=== PATIENT | female | born 1990 | race American Indian/Alaskan Native ===

== ENCOUNTER 2016-11-03 11:26 | Emergency (ER) | payer SELFPAY ==
[2016-11-03 11:53] VITALS: BP 104/72
--- NOTE | 2016-11-03 12:09 | Emergency Department Report ---
ED General Adult HPI - General Chief complaint: Anxiety Stated complaint: LIGHT HEADED/WEIGHT LOSS Time Seen by Provider: 11/03/16 11:58 Source: patient Mode of arrival: Ambulatory Limitations: No Limitations - History of Present Illness Initial comments: Pt reports multiple complaints. Reports intermittent episodes of lightheadedness , BOGDAN, decreased appetite, possible weight loss though has not checked. Reports symptoms ongoing. Also reports muscle cramps to legs at times. Currently no symptoms other than feeling tired. -: Gradual, month(s) Location: lower extremity Radiation: non-radiation Consistency: intermittent Improves with: none Worsens with: none Associated Symptoms: loss of appetite Treatments Prior to Arrival: none - Related Data Previous Rx's Medication Instructions Recorded Last Taken Type HYDROcodone/APAP 5-325 [[place] 1 each PO Q6HR PRN #14 tablet 01/22/16 Unknown Rx 5/325] Ibuprofen [Motrin] 800 mg PO Q8HR PRN #15 tablet 07/22/16 Unknown Rx LORazepam [Ativan] 1 mg PO BID PRN #10 tab 11/03/16 Unknown Rx Allergies Allergy/AdvReac Type Severity Reaction Status Date / Time No Known Allergies Allergy Unverified 01/22/16 10:10 ED Review of Systems ROS: Stated complaint: LIGHT HEADED/WEIGHT LOSS Other details as noted in HPI Comment: All other systems reviewed and negative Constitutional: see HPI. denies: chills, fever Eyes: denies: eye pain, eye discharge, vision change ENT: denies: ear pain, throat pain Respiratory: denies: cough, shortness of breath, wheezing Cardiovascular: denies: chest pain, palpitations Endocrine: no symptoms reported Gastrointestinal: denies: abdominal pain, nausea, diarrhea Genitourinary: denies: urgency, dysuria, discharge Musculoskeletal: denies: back pain, joint swelling, arthralgia Skin: denies: rash, lesions Neurological: denies: headache, weakness, paresthesias Psychiatric: denies: anxiety, depression Hematological/Lymphatic: denies: easy bleeding, easy bruising ED Past Medical Hx - Past Medical History Previous Medical History?: Yes Additional medical history: "stomach issue" - Surgical History Past Surgical History?: No - Social History Smoking Status: Current Every Day Smoker Substance Use Type: Alcohol, Marijuana - Medications Home Medications: Home Medications Medication Instructions Recorded Confirmed Last Taken Type HYDROcodone/APAP 5-325 [[place] 1 each PO Q6HR PRN #14 tablet 01/22/16 Unknown Rx 5/325] Ibuprofen [Motrin] 800 mg PO Q8HR PRN #15 tablet 07/22/16 Unknown Rx LORazepam [Ativan] 1 mg PO BID PRN #10 tab 11/03/16 Unknown Rx ED Physical Exam - General Limitations: No Limitations General appearance: alert, in no apparent distress - Head Head exam: Present: atraumatic, normocephalic - Eye Eye exam: Present: normal appearance - ENT ENT exam: Present: mucous membranes moist - Neck Neck exam: Present: normal inspection - Respiratory Respiratory exam: Present: normal lung sounds bilaterally. Absent: respiratory distress - Cardiovascular Cardiovascular Exam: Present: regular rate, normal rhythm. Absent: systolic murmur, diastolic murmur, rubs, gallop - GI/Abdominal GI/Abdominal exam: Present: soft, normal bowel sounds. Absent: distended, tenderness, guarding, rebound - Extremities Exam Extremities exam: Present: normal inspection, full ROM. Absent: calf tenderness - Back Exam Back exam: Present: normal inspection, full ROM. Absent: CVA tenderness (R), CVA tenderness (L) - Neurological Exam Neurological exam: Present: alert, oriented X3 - Psychiatric Psychiatric exam: Present: normal affect, normal mood. Absent: manic, homicidal ideation, suicidal ideation - Skin Skin exam: Present: warm, dry, intact, normal color. Absent: rash ED Course Vital Signs 11/03/16 11:48 Temperature 98.3 F Pulse Rate 65 Respiratory 20 Rate Blood Pressure 104/72 O2 Sat by Pulse 100 Oximetry - Reevaluation(s) Reevaluation #1: 11/03/16 12:08 Suspect symptoms related to anxiety. Will get a CBC/BMP to check for anemia or electrolyte abnormalities. Reevaluation #2: 11/03/16 12:54 NAD, stable for d/c. ED Medical Decision Making - Lab Data Result diagrams: 11/03/16 12:14 11/03/16 12:14 - Medical Decision Making Labs normal, no symptoms here. Suspect anxiety. Will give follow up. - Differential Diagnosis anxiety, anemia, electrolyte abnormality Critical care attestation.: If time is entered above; I have spent that time in minutes in the direct care of this critically ill patient, excluding procedure time. ED Disposition Clinical Impression: Anxiety Disposition: DISCHARGED TO HOME OR SELFCARE Is pt being admited?: No Condition: Good Instructions: Panic Disorder (ED), Anxiety (ED) Prescriptions: LORazepam [Ativan] 1 mg PO BID PRN #10 tab PRN Reason: Anxiety Referrals: PRIMARY CARE,MD [Primary Care Provider] - 3-5 Days MARTIN GRULLON MD [Staff Physician] - 3-5 Days Time of Disposition: 12:54
[2016-11-03 12:24] LABS: Hematocrit 41.4 % (30.3-42.9); Hemoglobin 13.5 gm/dl (10.1-14.3); Mean Corpuscular HGB Conc 33 % (30-34); Mean Corpuscular Hemoglobin 29 pg (28-32); Mean Corpuscular Volume 89 fl (79-97); Platelet Count 153 K/mm3 (140-440); Red Blood Count 4.66 M/mm3 (3.65-5.03); Red Cell Distribution Width 13.6 % (13.2-15.2); White Blood Count 4.2 K/mm3 (4.5-11.0)
[2016-11-03 12:51] LABS: Anion Gap 15 mmol/L; BUN/Creatinine Ratio 7.77; Blood Urea Nitrogen 7 mg/dL (7-17); Carbon Dioxide 26 mmol/L (22-30); Chloride 102.1 mmol/L (98-107); Glucose 93 mg/dL (65-100); Potassium 4.5 mmol/L (3.6-5.0); Sodium 139 mmol/L (137-145)
[2016-11-03 12:55] LABS: Blastocytes % (Manual) 0 %; Diff Status Complete; Platelet Estimate Appears Decreased; RBC Morphology Normal
== END 2016-11-03 13:04 | disposition home or self-care (01) ==
LOC: ED 11:26
DX: F41.9 Anxiety disorder, unspecified (principal); F17.200 Nicotine dependence, unspecified, uncomplicated; F12.10 Cannabis abuse, uncomplicated
CPT/HCPCS: 36415; 80048; 84703; 85007; 85025; 99283

== ENCOUNTER 2018-09-14 03:29 | Inpatient (IN) | payer MEDICAID, OTHER ==
[2018-09-14] MEDS ORDERED: BRETHINE SUB-Q PRN (04:21)
[2018-09-14] MEDS ORDERED: BRETHINE IVP PRN (04:21)
[2018-09-14] MEDS ORDERED: SUBLIMAZE IV PRN (04:21)
[2018-09-14] MEDS ORDERED: XYLOCAINE 2% INFILTRATI ONE (04:21)
[2018-09-14] MEDS ORDERED: LACTATED RINGERS 1,000 ML IV SCH ×2 (05:00→08:00)
[2018-09-14] MEDS ORDERED: PITOCin/NS 20 UNIT/1000ML DRIP 20 UNITS/1,000 ML BAG IV SCH ×2 (05:00→09:41)
[2018-09-14] MEDS ORDERED: PITOCin/NS 30 UNIT/500ML 30 UNITS/500 ML BAG IV SCH (05:00)
[2018-09-14 05:24] LABS: Hematocrit 34.3 % (30.3-42.9); Hemoglobin 11.8 gm/dl (10.1-14.3); Mean Corpuscular HGB Conc 34 % (30-34); Mean Corpuscular Volume 87 fl (79-97); Platelet Count 111 K/mm3 (140-440); Red Blood Count 3.93 M/mm3 (3.65-5.03); Red Cell Distribution Width 13.3 % (13.2-15.2)
[2018-09-14] MEDS ORDERED: NARCAN 2 MG/2 ML IV PRN (06:14)
--- NOTE | 2018-09-14 06:14 | Anesthesia Consultation ---
Anesthesia Consult and Med Hx Date of service: 09/14/18 - Airway Anesthetic Teeth Evaluation: Good ROM Head & Neck: Adequate Mental/Hyoid Distance: Adequate Mallampati Class: Class II Intubation Access Assessment: Probably Good - Pre-Operative Health Status ASA Pre-Surgery Classification: ASA2 Proposed Anesthetic Plan: Epidural, Spinal - Pulmonary Hx Asthma: No - Cardiovascular System Hx Hypertension: No - Central Nervous System Hx Seizures: No Hx Psychiatric Problems: No - Endocrine Hx Renal Disease: No Hx Hypothyroidism: No Hx Hyperthyroidism: No - Hematic Hx Anemia: No Hx Sickle Cell Disease: No - Other Systems Hx Alcohol Use: No
--- NOTE | 2018-09-14 06:53 | History and Physical Report ---
History of Present Illness Date of examination: 09/14/18 (pt presented in active labor ) Date of admission: 09/14/18 03:58 History of present illness: EDC Confirmation: 09/08/2018 Gestational Age: 19 2/7 weeks Past History : 1 Term Births: 0 Premature Births: 0 Living Children: 0 Para: 0 Mult. Births: 0 Prev : 0 Aborta: 0 Elect. Ab: 0 Spont. Ab: 0 Ectopics: 0 Past Medical History: Negative Past Medical History Past Surgical History: Negative Past Surgical History Family History Summary: Other family member - Has No Family History of Ovarvian Cancer - Entered On: 04/16/2018 Other family member - Has No Family History of Colon Cancer - Entered On: 04/16/2018 Other family member - Has No Family History of Breast Cancer - Entered On: 04/16/2018 Other family member - Has Family History of Hypertension - Entered On: 04/16/2018 Social History: Marital Status: Children: 0 Occupation: [employer] Patient is single Risk Factors: Smoked Tobacco Use: Current every day smoker Cigarettes: Yes -- 1/2 pack(s) per day, Year started: 2007 Counseled to quit/cut down: yes Drug use: no HIV high-risk behavior: low risk Alcohol use: no Dietary Counseling: pn yes Past Medical History Surgery (Non-criminalist): Negative Past Surgical History Abnormal PAP: negative Uterine Anomaly: negative Social Hx: Marital Status: Children: 0 Occupation: [employer] Patient is single Infection History Hx of STD: none HIV Risk Eval: low risk Hepatitis B Risk Eval: low risk Personal hx. of genital herpes: no Genetic History Congenital Heart Defect: Mom: no Dad: no Susana Disease: Mom: no Dad: no Thalassemia Mom: no Dad: no Neural Tube Defect Mom: no Dad: no Down's Syndrome Mom: no Dad: no Preston-Sachs Mom: no Dad: no Sickle Cell Disease/Trait Mom: no Dad: no Hemophilia Mom: no Dad: no Muscular Dystrophy Mom: no Dad: no Cystic Fibrosis Mom: no Dad: no [place] Chorea Mom: no Dad: no Mental Retardation Mom: no Dad: no Fragile X Mom: no Dad: no Other Genetic/Chromosomal Disorder Mom: no Dad: no Child w/other defect Mom: no Dad: no Enviromental Exposures Xray Exposure: no Medication, drug, or alcohol use since LMP: no Chemical/Other Exposure: no Exposure to Cat Liter: no Active Medications (reviewed today): None Current Allergies (reviewed today): No known allergies Past History - Obstetrical History Expected Date of Delivery: 09/08/18 Actual Gestation: 40 Week(s) 6 Day(s) : 1 Para: 0 Hx # Term Pregnancies: 0 Number of Pregnancies: 0 Spontaneous Abortions: 0 Induced : 0 Number of Living Children: 0 Medications and Allergies Allergies Allergy/AdvReac Type Severity Reaction Status Date / Time No Known Allergies Allergy Unverified 01/22/16 10:10 Home Medications Medication Instructions Recorded Confirmed Last Taken Type HYDROcodone/APAP 5-325 [[place] 1 each PO Q6HR PRN #14 tablet 01/22/16 Unknown Rx 5/325] Ibuprofen [Motrin] 800 mg PO Q8HR PRN #15 tablet 07/22/16 Unknown Rx LORazepam [Ativan] 1 mg PO BID PRN #10 tab 11/03/16 Unknown Rx Active Meds: Active Medications Ephedrine Sulfate (Ephedrine Sulfate) 10 mg IV Q2M PRN PRN Reason: Hypotension Fentanyl (Sublimaze) 100 mcg IV Q2H PRN PRN Reason: Labor Pain Last Admin: 09/14/18 05:01 Dose: 100 mcg Documented by: Lactated Ringer's (Lactated Ringers) 1,000 mls @ 125 mls/hr IV DIRECT YOLANDA Oxytocin/Sodium Chloride (Pitocin/Ns 20 Unit/1000ml Drip) 20 units in 1,000 mls @ 125 mls/hr IV DIRECT YOLANDA Oxytocin/Sodium Chloride (Pitocin/Ns 30 Unit/500ml) 30 units in 500 mls @ 1 mls/hr IV TITR YOLANDA; Protocol Fentanyl/Bupivacaine/Sodium Chlor (Fentanyl-Bupiv 2 Mcg/Ml-0.125%) 200 mcg in 100 mls @ 12 mls/hr EPIDURAL TITR YOLANDA; Protocol Mineral Oil (Mineral Oil) 30 ml PO QHS PRN PRN Reason: Constipation Naloxone HCl (Narcan 2 Mg/2 Ml) 0.2 mg IV Q5M PRN PRN Reason: Respiratory sedation Terbutaline Sulfate (Brethine) 0.25 mg SUB-Q ONCE PRN PRN Reason: Hyperstimulation/Hypertonicity Terbutaline Sulfate (Brethine) 0.25 mg IVP ONCE PRN PRN Reason: Hyperstimulation/Hypertonicity - Vital Signs Vital signs: Vital Signs Pulse BP Pulse Ox 33 L 114/75 57 L 09/14/18 03:46 09/14/18 03:46 09/14/18 03:46 Temp Pulse Resp BP Pulse Ox 75 115/58 100 09/14/18 06:14 09/14/18 06:14 09/14/18 03:57 - Physical Exam Breasts: Positive: deferred Cardiovascular: Regular rate, Normal S1, Normal S2 Lungs: Positive: Normal air movement Abdomen: Positive: normal appearance, soft, normal bowel sounds. Negative: distention, tenderness Genitourinary (Female): Positive: normal external genitalia Vulva: both: normal Vagina: Positive: normal moisture. Negative: discharge Cervix: Negative: lesion, discharge Uterus: Positive: normal size, normal contour Adnexa: both: normal Anus/Rectum: Positive: normal perianal skin, heme negative. Negative: rectal mass, hemorrhoids Extremities: Positive: normal Deep Tendon Reflex Grade: Normal +2 - Obstetrical FHR: category 1 Uterine Contraction Monitor Mode: External Cervical Dilatation: 6.5 (SROM) Cervical Effacement Percentage: 90 (exam by disposal operator) station: -1 Uterine Contraction Pattern: Regular Uterine Tone Measurement Phase: Resting Uterine Contraction Intensity: Moderate Results Result Diagrams: 09/14/18 04:44 Abnormal lab results 09/14/18 Range/Units 04:44 Plt Count 111 L (140-440) K/mm3 All other labs normal. GBS Positive HBsAg Screen Negative Negative *1 RPR Non Reactive Non Reactive *2 Rubella Antibodies, IgG 6.90 index Immune >0.99 *3 Non-immune <0.90 Equivocal 0.90 - 0.99 Immune >0.99 ABO Grouping A *4 Rh Factor Positive *5 Please note: Prior records for this patient's ABO / Rh type are not available for additional verification. Antibody Screen Negative Negative *6 WBC 5.8 x10E3/uL 3.4-10.8 *7 RBC 3.77 x10E6/uL 3.77-5.28 *8 Hemoglobin [L] 10.8 g/dL 11.1-15.9 *9 Hematocrit [L] 33.0 % 34.0-46.6 *10 MCV 88 fL 79-97 *11 MCH 28.6 pg 26.6-33.0 *12 MCHC 32.7 g/dL 31.5-35.7 *13 RDW 14.3 % 12.3-15.4 *14 Platelets 152 x10E3/uL 150-379 *15 Neutrophils 62 % Not Estab. *16 Lymphs 30 % Not Estab. *17 Monocytes 7 % Not Estab. *18 Eos 1 % Not Estab. *19 Basos 0 % Not Estab. *20 ! Immature Cells <No Reported Value> *21 Neutrophils (Absolute) 3.5 x10E3/uL 1.4-7.0 *22 Lymphs (Absolute) 1.7 x10E3/uL 0.7-3.1 *23 Monocytes(Absolute) 0.4 x10E3/uL 0.1-0.9 *24 Eos (Absolute) 0.1 x10E3/uL 0.0-0.4 *25 Baso (Absolute) 0.0 x10E3/uL 0.0-0.2 *26 ! Immature Granulocytes 0 % Not Estab. *27 ! Immature Grans (Abs) 0.0 x10E3/uL 0.0-0.1 *28 ! NRBC <No Reported Value> *29 Hematology Comments: <No Reported Value> *30 Tests: (2) Cystic Fibrosis Profile (090702) ! CF, Screen Comment: *31 RESULTS: Negative for 32 mutations analyzed Tests: (3) HB Solu + Rflx [facility] (626598) Hemoglobin (Hgb) Solubility Negative Negative *33 Tests: (4) Panel 216892 (831688) HIV Screen 4th Generation wRfx Non Reactive Non Reactive *34 Tests: (5) HCV Ab w/Rflx to Verification (111508) ! HCV Ab 0.1 s/co ratio 0.0-0.9 *35 Tests: (6) Comment: (319909) ! Comment: SPRCS *36 Non reactive HCV antibody screen is consistent with no HCV infection, unless recent infection is suspected or other evidence exists to indicate HCV infection. Tests: (7) Urine Culture, Routine ([id number]) Urine Culture, Routine Final report *37 Tests: (8) Result ([id number]) ! Result 1 MUG *38 Mixed urogenital yasmin 25,000-50,000 colony forming units per mL Assessment and Plan 27yo @ 40 weeks in active labor GBS + Orders in EMR
[2018-09-14] MEDS ORDERED: fentaNYL-BUPIV 2 MCG/ML-0.125% 200 MCG/100 ML BAG EPIDURAL SCH (07:00)
[2018-09-14] MEDS ORDERED: AMPICILLIN/NS 2 GM/100 ML 2 GM/100 ML BAG IV ONE (07:08)
--- NOTE | 2018-09-14 07:53 | Procedure Note ---
<EAN SALAS - Last Filed: 09/14/18 08:20> OB Delivery Note - Delivery Date of Delivery: 09/14/18 ( male ) Ironworker: ANUJ PEREZ (Assisted by Gibran Salas CNM) Estimated blood loss: 300cc - Vaginal Delivery presentation: vertex Delivery position: OA (shoulders transverse) Intrapartum events: mult.variable deceleratio Delivery induction: none Delivery monitor: external FHT, external uterine Route of delivery: Delivery placenta: spontaneous Delivery cord: true knot, 3 umbilical vessels Episiotomy: midline Delivery laceration: 4th degree Delivery repair: vicryl Anesthesia: epidural Delivery comments: deep variables noted in FHT while head . Male infant del over mi dline episiotomy, Infant placed skin to skin on mother's abdomen. terminal mec noted. 3 vessel cord clamped and cut. Tight true knot noted in cord. Placenta del intact and complete. partial 4th degree extension identified and repaired by Breanna Perez CNM in the usual fashion. Apgars 7/9, wt 7#2oz, EBL 300. Mother and infant remain LDR stable. - A at 1 minute: 7 at 5 minutes: 9 Gender: Male (7#2) <ANUJ PEREZ - Last Filed: 09/14/18 10:47> OB Delivery Note - Vaginal Delivery comments: Episiotomy repaired with 3-0 and 2-0 vicryl over epidural. Rectal mucosa intact. Pt tolerated repair. Wound care reviewed All questions addressed.
[2018-09-14] MEDS ORDERED: DERMOPLAST TP PRN (09:41)
[2018-09-14] MEDS ORDERED: BENADRYL PO PRN (09:41)
[2018-09-14] MEDS ORDERED: ZOFRAN IV PRN (09:41)
[2018-09-14] MEDS ORDERED: LANSINOH TP PRN (09:41)
[2018-09-14] MEDS ORDERED: TYLENOL PO PRN (09:41)
[2018-09-14] MEDS ORDERED: SODIUM CHLORIDE FLUSH SYRINGE 10 ML IV NR (09:41)
[2018-09-14] MEDS ORDERED: MILK OF MAGNESIA PO PRN (09:41)
[2018-09-14] MEDS ORDERED: DULCOLAX PR PRN (09:41)
[2018-09-14] MEDS ORDERED: PHENERGAN PO PRN (09:41)
[2018-09-14] MEDS: TUCKS PAD TP PRN (10:24)
[2018-09-14] MEDS: IBUPROFEN PO SCH ×2 (10:25→16:25)
[2018-09-14] MEDS: COLACE PO SCH ×2 (10:25→22:12)
[2018-09-14] MEDS: PERCOCET 5/325 PO PRN ×2 (13:42→18:42)
[2018-09-14] MEDS: PRENATAL VITAMIN PO SCH (14:19)
[2018-09-14 19:59] LABS: Hematocrit 31.5 % (30.3-42.9); Hemoglobin 10.7 gm/dl (10.1-14.3)
[2018-09-14] MEDS ORDERED: MINERAL OIL PO PRN (22:00)
[2018-09-15] MEDS: IBUPROFEN PO SCH ×5 (00:11→22:18)
[2018-09-15] MEDS: PERCOCET 5/325 PO PRN ×4 (00:14→22:19)
[2018-09-15] MEDS ORDERED: BOOSTRIX IM ONE (07:46)
--- NOTE | 2018-09-15 08:15 | Progress Note ---
Assessment and Plan - Patient Problems (1) Fourth degree perineal laceration during delivery, delivered Onset Date: ~09/14/18 Current Visit: Yes Status: Acute Plan to address problem: Pt c/o some laceration pain Wound care discussed Pt voiced understanding VSS FF below umb Lochia small perineum slight swelling intact H&H 07/11 drop r/t blood loss from delivery Asymptomatic anemia Doing well s/p vag del with 4th degree lac. P: continue pathway Advance as tolerated. Encouraged ambulation D/C tomorrow Subjective - Subjective Date of service: 09/15/18 (c/o laceration pain) Principal diagnosis: Day#1 s/p with partial 4th laceration; GBS untreated Interval history: EDC Confirmation: 09/08/2018 Gestational Age: 19 2/7 weeks Past History : 1 Term Births: 0 Premature Births: 0 Living Children: 0 Para: 0 Mult. Births: 0 Prev : 0 Aborta: 0 Elect. Ab: 0 Spont. Ab: 0 Ectopics: 0 Past Medical History: Negative Past Medical History Past Surgical History: Negative Past Surgical History Family History Summary: Other family member - Has No Family History of Ovarvian Cancer - Entered On: 04/16/2018 Other family member - Has No Family History of Colon Cancer - Entered On: 04/16/2018 Other family member - Has No Family History of Breast Cancer - Entered On: 04/16/2018 Other family member - Has Family History of Hypertension - Entered On: 04/16/2018 Social History: Marital Status: Children: 0 Occupation: [employer] Patient is single Risk Factors: Smoked Tobacco Use: Current every day smoker Cigarettes: Yes -- 1/2 pack(s) per day, Year started: 2007 Counseled to quit/cut down: yes Drug use: no HIV high-risk behavior: low risk Alcohol use: no Dietary Counseling: pn yes Past Medical History Surgery (Non-teletype technician): Negative Past Surgical History Abnormal PAP: negative Uterine Anomaly: negative Social Hx: Marital Status: Children: 0 Occupation: [employer] Patient is single Infection History Hx of STD: none HIV Risk Eval: low risk Hepatitis B Risk Eval: low risk Personal hx. of genital herpes: no Genetic History Congenital Heart Defect: Mom: no Dad: no Susana Disease: Mom: no Dad: no Thalassemia Mom: no Dad: no Neural Tube Defect Mom: no Dad: no Down's Syndrome Mom: no Dad: no Preston-Sachs Mom: no Dad: no Sickle Cell Disease/Trait Mom: no Dad: no Hemophilia Mom: no Dad: no Muscular Dystrophy Mom: no Dad: no Cystic Fibrosis Mom: no Dad: no [place] Chorea Mom: no Dad: no Mental Retardation Mom: no Dad: no Fragile X Mom: no Dad: no Other Genetic/Chromosomal Disorder Mom: no Dad: no Child w/other defect Mom: no Dad: no Enviromental Exposures Xray Exposure: no Medication, drug, or alcohol use since LMP: no Chemical/Other Exposure: no Exposure to Cat Liter: no Active Medications (reviewed today): None Current Allergies (reviewed today): No known allergies Patient reports: appetite normal, voiding normally, pain well controlled, ambulating normally : doing well Objective - Vital Signs Latest vital signs: Vital Signs Temp Pulse Resp BP 09/15/18 00:00 98.7 F 72 16 103/67 09/14/18 20:00 98.6 F 78 18 104/78 09/14/18 16:46 98.2 F 63 18 123/80 09/14/18 08:20 98 F Intake and Output 09/14/18 09/15/18 09/15/18 22:59 06:59 14:59 Intake Total 480 300 Output Total 500 Balance -20 300 Intake: Oral 480 Intake, Free Water 300 Output: Urine 500 Indwelling Catheter 500 Other: Total, Intake Amount 480 Total, Output Amount 500 # Voids Indwelling Catheter 1 - Exam Breasts: Present: normal Cardiovascular: Present: Regular rate Lungs: Present: Normal air movement Abdomen: Present: normal appearance, soft, normal bowel sounds Uterus: Present: normal Extremities: Present: normal Incision: Present: normal, dry, edematous, intact
[2018-09-15] MEDS: COLACE PO SCH ×2 (10:04→22:18)
[2018-09-15] MEDS: PRENATAL VITAMIN PO SCH (10:04)
[2018-09-15] MEDS: TUCKS PAD TP PRN (12:23)
--- NOTE | 2018-09-16 07:57 | Discharge Summary ---
Providers - Providers Date of Admission: 09/14/18 03:58 Date of discharge: 09/16/18 (pt agrees with d/c) Attending physician: CHEIKH CALLAWAY Primary care physician: CHEIKH CALLAWAY Hospitalization Reason for admission: active labor Delivery: Episiotomy: midline Laceration: 4th degree Incision: normal, dry, intact Other procedures: none complications: none Discharge diagnosis: IUP at term delivered baby: male Hospital course: uncomplicated vaginal delivery 4th degree laceration w/minimal swelling intact. Pt OOB caring for NB Only c/o pain when she sits straingt down. Encouraged to get a donut cushion, OTC dermoplast and Tucks pads. VSS FF below umb Lochia small Perineum swelling noted intact H&H 07/11 stable Pt is asymptomatic Doing well s/p ; 4th degree lac. P: d/c home today with instructions Reviewed wound care with pt. RTO 1 week for son's circ and postop care. Condition at discharge: Good Disposition: DC-01 TO HOME OR SELFCARE - Discharge Diagnoses (1) Fourth degree perineal laceration during delivery, delivered Status: Acute Comment: RTO 1 week postop care (2) (normal spontaneous vaginal delivery) Status: Acute Comment: RTO 4 weeks PP care Plan - Discharge Medications Prescriptions: Ibuprofen [Motrin 800 MG tab] 800 mg PO TID PRN #30 tablet PRN Reason: Pain Lidocain2.5%/Prilocai2.5% [Emla] 5 gm TP PRN #1 tube - Provider Discharge Summary Activity: routine, no sex for 6 weeks, no heavy lifting 4 weeks, no strenuous exercise Diet: routine Instructions: routine Additional instructions: [] Smoking cessation referral if applicable(refer to patient education folder for contact #) [] Refer to [facility] Booklet Call your doctor immediately for: * Fever > 100.5 * Heavy vaginal bleeding ( >1 pad per hour) * Severe persistent headache * Shortness of breath * Reddened, hot, painful area to leg or breast * Drainage or odor from incision. * Keep incision clean and dry at all times and follow doctor's instructions regarding bathing/showering - Follow up plan Follow up: CHEIKH CALLAWAY MD [Primary Care Provider] - 7 Days (Congratulations! Please call [phone] to schedule your son's circumcision in 1 week ( and to evaluate your laceration) and your visit in 4 weeks. Bring the EMLA cream with you to his visit. Do NOT use at home. Motrin/ibuprofen for pain/cramping. Call with concerns.)
[2018-09-16] MEDS: COLACE PO SCH (09:55)
[2018-09-16] MEDS: PRENATAL VITAMIN PO SCH (09:55)
[2018-09-16] MEDS: IBUPROFEN PO SCH (09:55)
[2018-09-16] MEDS: PERCOCET 5/325 PO PRN (12:08)
[2018-09-16 13:02] VITALS: BP 126/72
== END 2018-09-16 12:55 | disposition home or self-care (01) | DRG 775 ==
LOC: TRG 03:29 → LD 03:58 → TRG 03:58 → OB 09:45
PROVIDERS: ADMIT Obstetrics & Gynecology; ATTEND Obstetrics & Gynecology
PROC: 10E0XZZ Delivery of Products of Conception, External Approach (ICD-10-PCS; principal; 2018-09-14)
PROC: 3E0234Z Introduction of Serum, Toxoid and Vaccine into Muscle, Percutaneous Approach (ICD-10-PCS; 2018-09-14)
PROC: 0DQP0ZZ Repair Rectum, Open Approach (ICD-10-PCS; 2018-09-14)
PROC: 0W8NXZZ Division of Female Perineum, External Approach (ICD-10-PCS; 2018-09-14)
PROC: 10E0XZZ Delivery of Products of Conception, External Approach (ICD-10-PCS; 2018-09-14)
PROC: 3E0R3BZ Introduction of Anesthetic Agent into Spinal Canal, Percutaneous Approach (ICD-10-PCS; 2018-09-14)
PROC: 00HU33Z Insertion of Infusion Device into Spinal Canal, Percutaneous Approach (ICD-10-PCS; 2018-09-14)
DX: O76 Abnormality in fetal heart rate and rhythm complicating labor and delivery (principal); Z3A.40 40 weeks gestation of pregnancy; O70.3 Fourth degree perineal laceration during delivery; Z37.0 Single live birth; Z23 Encounter for immunization; Z82.49 Family history of ischemic heart disease and other diseases of the circulatory system; O99.334 Smoking (tobacco) complicating childbirth; F17.210 Nicotine dependence, cigarettes, uncomplicated; O99.824 Streptococcus B carrier state complicating childbirth; O69.2XX0 Labor and delivery complicated by other cord entanglement, with compression, not applicable or unspecified
CPT/HCPCS: 36415; 85014; 85018; 85027; 86592; 86850; 86900; 86901; G0378; J0290; J2590; J3010; J7120

== ENCOUNTER 2021-11-15 14:07 | Emergency (ER) | payer MEDICAID, OTHER ==
[2021-11-15 15:03] VITALS: BP 117/73
--- NOTE | 2021-11-15 15:09 | Emergency Department Report ---
ED ENT HPI - General Chief complaint: Earache Stated complaint: RT EAR PAIN Time Seen by Provider: 11/15/21 15:07 Source: patient Mode of arrival: Ambulatory Limitations: No Limitations - History of Present Illness Initial comments: Patient presents with right ear pain. She has noticed swelling and drainage from the right ear canal. She states that she has a large pimple and it popped. The swelling is gone down a little, but it is still painful and swollen. Pain is constant and aching. It is worse when she talks and moves her head. It is worse with palpation. She came in for evaluation and treatment because of this. She has not been on antibiotics lately. Pain is constant. - Related Data Previous Rx's Medication Instructions Recorded Last Taken Type Lidocain2.5%/Prilocai2.5% [Emla] 5 gm TP PRN #1 tube 09/15/18 Unknown Rx Amoxicillin/Potassium Clav 1 each PO BID #20 tab 11/15/21 Unknown Rx [Augmentin 875-125 Tablet] HYDROcodone/APAP 5-325 [[place] 1 each PO Q6HR PRN #14 tablet 11/15/21 Unknown Rx 5-325 mg TAB] Ibuprofen [Motrin 800 MG tab] 800 mg PO TID PRN #30 tablet 11/15/21 Unknown Rx Allergies Allergy/AdvReac Type Severity Reaction Status Date / Time No Known Allergies Allergy Unverified 01/22/16 10:10 ED Dental HPI - General Chief complaint: Earache Stated complaint: RT EAR PAIN Time Seen by Provider: 11/15/21 15:07 Source: patient Mode of arrival: Ambulatory Limitations: No Limitations - Related Data Previous Rx's Medication Instructions Recorded Last Taken Type Lidocain2.5%/Prilocai2.5% [Emla] 5 gm TP PRN #1 tube 09/15/18 Unknown Rx Amoxicillin/Potassium Clav 1 each PO BID #20 tab 11/15/21 Unknown Rx [Augmentin 875-125 Tablet] HYDROcodone/APAP 5-325 [[place] 1 each PO Q6HR PRN #14 tablet 11/15/21 Unknown Rx 5-325 mg TAB] Ibuprofen [Motrin 800 MG tab] 800 mg PO TID PRN #30 tablet 11/15/21 Unknown Rx Allergies Allergy/AdvReac Type Severity Reaction Status Date / Time No Known Allergies Allergy Unverified 01/22/16 10:10 ED Review of Systems ROS: Stated complaint: RT EAR PAIN Other details as noted in HPI Comment: All other systems reviewed and negative Constitutional: denies: fever Eyes: denies: vision change ENT: as per HPI Respiratory: denies: cough Cardiovascular: denies: chest pain Endocrine: denies: unexplained weight loss Gastrointestinal: denies: vomiting Genitourinary: denies: dysuria Musculoskeletal: denies: back pain Skin: denies: rash Neurological: denies: headache Hematological/Lymphatic: denies: easy bruising ED Past Medical Hx - Past Medical History Previous Medical History?: No Hx Hypertension: No Hx Diabetes: No Hx Deep Vein Thrombosis: No Hx Renal Disease: No Hx Sickle Cell Disease: No Hx Seizures: No Hx Asthma: No Hx HIV: No Additional medical history: "stomach issue" - Surgical History Past Surgical History?: No - Family History Family history: no significant - Social History Smoking Status: Former Smoker - Medications Home Medications: Home Medications Medication Instructions Recorded Confirmed Last Taken Type Lidocain2.5%/Prilocai2.5% [Emla] 5 gm TP PRN #1 tube 09/15/18 Unknown Rx Amoxicillin/Potassium Clav 1 each PO BID #20 tab 11/15/21 Unknown Rx [Augmentin 875-125 Tablet] HYDROcodone/APAP 5-325 [[place] 1 each PO Q6HR PRN #14 tablet 11/15/21 Unknown Rx 5-325 mg TAB] Ibuprofen [Motrin 800 MG tab] 800 mg PO TID PRN #30 tablet 11/15/21 Unknown Rx ED Physical Exam - General Limitations: No Limitations, Other (Pulse ox noted and normal) General appearance: alert, in no apparent distress - Head Head exam: Present: atraumatic, other (Preauricular swelling on the right) - Eye Eye exam: Present: normal appearance, EOMI - ENT ENT exam: Present: TM's normal bilaterally, other (Patient has evidence of preauricular swelling on the right with edema of the canal. There is purulent drainage noted with warmth and erythema.) - Neck Neck exam: Present: normal inspection. Absent: meningismus - Respiratory Respiratory exam: Present: normal lung sounds bilaterally. Absent: respiratory distress - Cardiovascular Cardiovascular Exam: Present: regular rate, normal rhythm - Extremities Exam Extremities exam: Present: normal capillary refill - Back Exam Back exam: Present: full ROM - Neurological Exam Neurological exam: Present: alert, oriented X3, CN II-XII intact, normal gait - Psychiatric Psychiatric exam: Present: normal affect, normal mood - Skin Skin exam: Present: warm, dry ED Course Vital Signs 11/15/21 11/15/21 15:00 15:12 Temperature 98.6 F Pulse Rate 86 Respiratory 14 Rate Blood Pressure 117/73 O2 Sat by Pulse 98 98 Oximetry - Reevaluation(s) Reevaluation #1: 11/16/21 18:55 Patient was treated and discharged we did discuss I&D which she refused. ED Medical Decision Making - Medical Decision Making Patient presents with evidence of a cellulitis involving the right external auditory canal. This is not consistent with otitis externa. This is more consistent with a cellulitis and abscess. She has had spontaneous drainage. We did discuss further drainage with I&D. She refused. She did have the capacity to make this decision at this time. Antibiotics were started and the patient was invited to return if she changed her mind. A friend of hers that was here tried to get her to do the I&D again she refused. Critical Care Time: No Critical care attestation.: If time is entered above; I have spent that time in minutes in the direct care of this critically ill patient, excluding procedure time. ED Disposition Clinical Impression: Cellulitis of right ear Disposition: 01 HOME / SELF CARE / HOMELESS Is pt being admited?: No Condition: Stable Instructions: Cellulitis, Adult, [id number] Additional Instructions: USE WARM COMPRESSES. RETURN FOR PROBLEMS. FOLLOW UP WITH THE REFERRAL DOCTOR OR YOUR DOCTOR. Prescriptions: Amoxicillin/Potassium Clav [Augmentin 875-125 Tablet] 1 each PO BID #20 tab Ibuprofen [Motrin 800 MG tab] 800 mg PO TID PRN #30 tablet PRN Reason: Pain HYDROcodone/APAP 5-325 [[place] 5-325 mg TAB] 1 each PO Q6HR PRN #14 tablet PRN Reason: Pain Referrals: LIMA LAM MD [Staff Physician] - 3-5 Days
== END 2021-11-15 16:34 | disposition home or self-care (01) ==
LOC: ED 14:07
DX: H60.11 Cellulitis of right external ear (principal); Z87.891 Personal history of nicotine dependence; Z79.899 Other long term (current) drug therapy
CPT/HCPCS: 99282

== ENCOUNTER 2022-01-19 18:12 | Emergency (ER) | payer OTHER ==
[2022-01-19 19:02] VITALS: BP 114/67
--- NOTE | 2022-01-19 19:54 | XRay Report ---
XR chest routine 2V INDICATION / CLINICAL INFORMATION: CHEST PAIN...cough...fever COMPARISON: None available. FINDINGS: SUPPORT DEVICES: None. HEART / MEDIASTINUM: No significant abnormality. LUNGS / PLEURA: Lungs are clear. Costophrenic sulci are sharp. No pneumothorax. ADDITIONAL FINDINGS: Rightward deviation of the chest. No significant additional findings. IMPRESSION: 1. No acute findings. Signer Name: Dash Ferreira MD Signed: 01/19/2022 7:50 PM Workstation Name: [id number]
--- NOTE | 2022-01-19 20:37 | Emergency Department Report ---
<KARIS MARRUFO - Last Filed: 01/19/22 20:33> ED General Adult HPI - General Chief complaint: Chest Pain Stated complaint: CHEST PAINS Time Seen by Provider: 01/19/22 20:07 Source: patient Mode of arrival: Ambulatory Limitations: No Limitations - History of Present Illness Initial comments: Patient 31-year-old female who presents for chest wall pain with cough. Productive clear x3 days. Patient smokes marijuana daily. Is been no fevers no chills no nausea no vomiting. No sore throat no wheezing or stridor. Is exacer bated by environmental exposure. Symptoms are relieved by nothing tried. Patient is not COVID vaccinated. Patient states with 1 episode of nausea yesterday. Is currently tolerating p.o. intake and hydration without symptoms. Patient drove self to ED today patient is alert oriented x3 amatory steady gait and appears nontoxic. Severity scale (0 -10): 7 - Related Data Previous Rx's Medication Instructions Recorded Last Taken Type Lidocain2.5%/Prilocai2.5% [Emla] 5 gm TP PRN #1 tube 09/15/18 Unknown Rx Amoxicillin/Potassium Clav 1 each PO BID #20 tab 11/15/21 Unknown Rx [Augmentin 875-125 Tablet] HYDROcodone/APAP 5-325 [[place] 1 each PO Q6HR PRN #14 tablet 11/15/21 Unknown Rx 5-325 mg TAB] Ibuprofen [Motrin 800 MG tab] 800 mg PO TID PRN #30 tablet 11/15/21 Unknown Rx Guaifenesin/Pseudoephedrne HCl 1 tab PO BID PRN #20 tab 01/19/22 Unknown Rx [Mucinex D ER 1,200-120 mg Tab] Ibuprofen [Motrin 800 MG tab] 800 mg PO Q8HR PRN #30 tablet 01/19/22 Unknown Rx Allergies Allergy/AdvReac Type Severity Reaction Status Date / Time No Known Allergies Allergy Unverified 01/19/22 19:02 ED Review of Systems Constitutional: denies: chills, fever Eyes: denies: eye pain, eye discharge, vision change ENT: congestion Respiratory: cough. denies: shortness of breath, wheezing Cardiovascular: chest pain (Left anterior chest wall pain with cough). denies: palpitations Endocrine: no symptoms reported Gastrointestinal: nausea. denies: abdominal pain, vomiting, diarrhea, constipation, melena Genitourinary: denies: urgency, dysuria, frequency, hematuria, discharge Musculoskeletal: back pain (Left upper back pain exacerbated by cough). denies: joint swelling, arthralgia Skin: denies: rash, lesions Neurological: denies: headache, weakness, paresthesias Psychiatric: denies: anxiety, depression Hematological/Lymphatic: denies: easy bleeding, easy bruising ED Past Medical Hx - Past Medical History Hx Hypertension: No Hx Diabetes: No Hx Deep Vein Thrombosis: No Hx Renal Disease: No Hx Sickle Cell Disease: No Hx Seizures: No Hx Asthma: No Hx HIV: No Additional medical history: "stomach issue" - Social History Smoking Status: Former Smoker - Medications Home Medications: Home Medications Medication Instructions Recorded Confirmed Last Taken Type Lidocain2.5%/Prilocai2.5% [Emla] 5 gm TP PRN #1 tube 09/15/18 Unknown Rx Amoxicillin/Potassium Clav 1 each PO BID #20 tab 11/15/21 Unknown Rx [Augmentin 875-125 Tablet] HYDROcodone/APAP 5-325 [[place] 1 each PO Q6HR PRN #14 tablet 11/15/21 Unknown Rx 5-325 mg TAB] Ibuprofen [Motrin 800 MG tab] 800 mg PO TID PRN #30 tablet 11/15/21 Unknown Rx Guaifenesin/Pseudoephedrne HCl 1 tab PO BID PRN #20 tab 01/19/22 Unknown Rx [Mucinex D ER 1,200-120 mg Tab] Ibuprofen [Motrin 800 MG tab] 800 mg PO Q8HR PRN #30 tablet 01/19/22 Unknown Rx ED Physical Exam - General Limitations: No Limitations General appearance: alert, in no apparent distress - Head Head exam: Present: normocephalic, normal inspection - Eye Eye exam: Present: PERRL, EOMI. Absent: conjunctival injection, nystagmus Pupils: Present: normal accommodation - ENT ENT exam: Present: normal orophraynx, mucous membranes moist, TM's normal bilaterally - Neck Neck exam: Present: normal inspection, full ROM. Absent: tenderness, lymphadenopathy, thyromegaly - Respiratory Respiratory exam: Present: normal lung sounds bilaterally, chest wall tenderness (Left anterior chest wall reproducible to palpation no crepitus no step-off no ecchymosis.). Absent: respiratory distress, wheezes, rales, rhonchi, stridor, prolonged expiratory - Cardiovascular Cardiovascular Exam: Present: regular rate, normal rhythm, normal heart sounds. Absent: systolic murmur, diastolic murmur, rubs, gallop - GI/Abdominal GI/Abdominal exam: Present: soft, normal bowel sounds. Absent: distended, tenderness, guarding, rebound, rigid, bruit, hernia - Rectal Rectal exam: Present: deferred - Extremities Exam Extremities exam: Present: normal inspection, full ROM, normal capillary refill - Back Exam Back exam: Present: normal inspection, full ROM. Absent: CVA tenderness (R), CVA tenderness (L) - Neurological Exam Neurological exam: Present: alert, CN II-XII intact, normal gait - Expanded Neurological Exam Expanded Patient oriented to: Present: person, place, time Speech: Present: fluid speech Motor strength exam: RUE: 5, LUE: 5, RLE: 5, LLE: 5 Best Eye Response ([place]): (4) open spontaneously Best Motor Response ([place]): (6) obeys commands Best Verbal Response ([place]): (5) oriented Daina Total: 15 - Psychiatric Psychiatric exam: Present: normal affect, normal mood - Skin Skin exam: Present: warm, dry, intact, normal color. Absent: rash ED Medical Decision Making - EKG Data EKG shows normal: sinus rhythm, axis, intervals, QRS complexes, ST-T waves Rate: normal - EKG Data When compared to previous EKG there are: previous EKG unavailable Interpretation: normal EKG (Normal sinus rhythm normal rate normal intervals normal EKG. No ST elevated [place] interpreted by ED attending.) - Radiology Data Radiology results: report reviewed, image reviewed INDICATION / CLINICAL INFORMATION: CHEST PAIN...cough...fever COMPARISON: None available. FINDINGS: SUPPORT DEVICES: None. HEART / MEDIASTINUM: No significant abnormality. LUNGS / PLEURA: Lungs are clear. Costophrenic sulci are sharp. No pneumothorax. ADDITIONAL FINDINGS: Rightward deviation of the chest. No significant additional findings. IMPRESSION: 1. No acute findings. Signer Name: Dash Ferreira MD Signed: 01/19/2022 7:50 PM Workstation Name: [id number] Transcribed By: Dictated By: Dash Ferreira MD Electronically Authenticated By: Dash Ferreira MD Signed Date/Time: 01/19/221949 DD/ 48 TD/TT: - Medical Decision Making Heart score 0 chest x-ray is normal EKG normal sinus rhythm no ST elevated [place] interpreted by ED attending. Pain is with cough only it is reproducible to deep palpation. It is left lateral anterior chest wall there is no crepitus no ecchymosis no step-off. Patient denies fall injury or trauma. Lung sounds are clear throughout respirations are even and nonlabored plan DC to home. NSAIDs as needed pain. [id number] cough medications as needed. Follow-up with primary care doctor in 2 to 3 days. Patient verbalized agreement understanding with discharge plan. Patient DC'd home in stable condition at this time. ED Disposition Clinical Impression: Chest wall pain URI (upper respiratory infection) Qualifiers: URI type: unspecified URI Qualified Code(s): J06.9 - Acute upper respiratory infection, unspecified Disposition: HOME / SELF CARE / HOMELESS Is pt being admited?: No Does the pt Need Aspirin: No Condition: Stable Instructions: Upper Respiratory Infection, Adult, Nonspecific Chest Pain, Adult Additional Instructions: Take medications as prescribed, follow-up with your doctor in 2 to 3 days. R eturn to emergency department should symptoms worsen. Prescriptions: Ibuprofen [Motrin 800 MG tab] 800 mg PO Q8HR PRN #30 tablet PRN Reason: pain Guaifenesin/Pseudoephedrne HCl [Mucinex D ER 1,200-120 mg Tab] 1 tab PO BID PRN #20 tab PRN Reason: cough Referrals: ANUP HARDING MD [Primary Care Provider] - 3-5 Days Forms: Work/School Release Form(ED) Time of Disposition: 20:40 <REZA FAIRBANKS U - Last Filed: 01/21/22 09:50> ED Review of Systems ROS: Stated complaint: CHEST PAINS Other details as noted in HPI ED Course Vital Signs 01/19/22 19:00 Temperature 99.6 F Pulse Rate 81 Respiratory 16 Rate Blood Pressure 114/67 [Right] O2 Sat by Pulse 98 Oximetry ED Medical Decision Making - Medical Decision Making I have reviewed the PA/SALES REPRESENTATIVE ADDING MACHINES's note and plan of care. I was available for consultation as needed at all times during the patient's visit in the emergency department but was not consulted on this case. Critical care attestation.: If time is entered above; I have spent that time in minutes in the direct care of this critically ill patient, excluding procedure time.
== END 2022-01-19 20:53 | disposition home or self-care (01) ==
LOC: ED 18:12
DX: J06.9 Acute upper respiratory infection, unspecified (principal); R07.89 Other chest pain; Z87.891 Personal history of nicotine dependence; Z79.899 Other long term (current) drug therapy
CPT/HCPCS: 71046; 93005; 99283